=== PATIENT | male | born 1995 | race African-American/Black ===

== ENCOUNTER 2020-02-23 20:34 | Inpatient (IN) | payer SELFPAY ==
[~2020-02-23] VITALS: Ht 170.2 cm; Wt 59.1 kg
[2020-02-23 20:35] VITALS: BP 114/52
--- NOTE | 2020-02-23 20:35 | NUR ---
ED Nurse Note: Pt brought into ED by FRANK RA 67 from [facility] for altered mental status due to overdose of unknown drug. Pt was found unresponsive in hotel room by FRANK. FRANK states they attempted to secure his airway with OPA on scene and pt did not tolerate OPA. Pt became less responsive en route and FRANK came into ED bagging patient with BVM. Pt was also given narcan en route by FRANK with no response. ERMD bedside. Pt is not responsive to noxious stimuli in the ED. Pt pupils are fixed and nonresponsive to light. Pt connected to pet care technician and placed in gown. Will continute to monitor pt.
--- NOTE | 2020-02-23 20:45 | NUR ---
ED Nurse Note: ERMD bedside. Pt is on 15L oxgen via NRB at this time. Pt appears to be agonal breathing, unable to secure his own airway. ERMD setting up for intubation.
--- NOTE | 2020-02-23 20:50 | NUR ---
ED Nurse Note: Intubation documentation: Pre intubation VS: BP 110/ 83, HR 65, RR 8 on 15L NRB oxygen sat 98% Meds: 2051 pt given etomidate 20mg via IVP and 100mg rocuronium via IVP Intubation completed at 2054. No complications noted. Pt connected to mechanical ventilator by RT with vent settings- PEEP 5.0, TV 480, FiO2 60%. ET tube size 7.5 and secured at 25cm at the lip.
--- NOTE | 2020-02-23 20:59 | Emergency Room Report ---
History of Present Illness General Chief Complaint: Overdose Source: EMS (Jose Antonio Carey MD) Present Illness HPI 27-year-old male presents with altered mental status after utilizing drugs, he was found down unresponsive, unknown length of time aggravated by drugs alleviated by not taking drugs, severity is severe, patient presents via EMS patient received Narcan with no change in mental status patient had fixed dilated pupils (Jose Antonio Carey MD) Allergies: Coded Allergies: UNABLE TO ASSESS (Unverified , 02/23/20) COVID-19 Screening Contact w/high risk pt: No Recent Travel to affected area: No Experienced COVID-19 symptoms?: No (Jose Antonio Carey MD) Patient History Limited by: medical condition - Altered mental status Past Medical History: see triage record Social History: Reports: drug use Reviewed Nursing Documentation: PMH: Agreed; PSxH: Agreed (Jose Antonio Carey MD) Review of Systems All Other Systems: limited - Altered mental status (Jose Antonio Carey MD) Physical Exam Vital Signs Date Time Temp Pulse Resp B/P (MAP) Pulse Ox O2 Delivery O2 Flow Rate FiO2 02/23/20 20:30 58 114/52 (72) Sp02 EP Interpretation: reviewed, abnormal General Appearance: severe distress Head: normocephalic, atraumatic Eyes: bilateral eye other - fixed dilated ENT: uvula midline, moist mucus membranes Neck: supple, thyroid normal, supple/symm/no masses Respiratory: lungs clear, no respiratory distress, no retraction, no accessory muscle use Cardiovascular #1: normal peripheral pulses, regular rate, rhythm, no edema, no gallop, no murmur Gastrointestinal: non tender, soft, no guarding, no rebound Musculoskeletal: normal inspection Neurologic: other - Unresponsive Skin: no rash, warm/dry (Jose Antonio Carey MD) Procedures Critical Care Time Critical Care Time Given the critical condition in which the patient arrived, the patient was immediately assessed by myself and the nurse, and cardiac monitoring initiated due to the potential for rapid decompensation of the patient's clinical condition. During the course of the patient's stay, I spent a considerable amount of time at the bedside performing serial re-evaluations of the patient's hemodynamic and clinical status because of the recognized potential threat to life or limb in this condition. I then had a chance to review not only all of the available current laboratory and radiographic studies obtained today, but I also reviewed old records available to me at the time. Additionally, any ancillary information available including program mgr records were reviewed. Sequential vital signs were obtained. Critical Care time of 31 minutes was performed exclusive of billable procedures. (Jose Antonio Carey MD) Medical Decision Making Diagnostic Impression: Primary Impression: Altered mental state Qualified Codes: R41.82 - Altered mental status, unspecified Additional Impressions: Respiratory failure with hypoxia Qualified Codes: J96.01 - Acute respiratory failure with hypoxia Anoxic brain injury Hypothermia Qualified Codes: T68.XXXA - Hypothermia, initial encounter Polysubstance overdose Qualified Codes: T50.901A - Poisoning by unspecified drugs, medicaments and biological substances, accidental (unintentional), initial encounter ARF (acute renal failure) Qualified Codes: N17.9 - Acute kidney failure, unspecified Lactic acidosis Rhabdomyolysis Qualified Codes: M62.82 - Rhabdomyolysis ER Course 27-year-old male overdose, fixed dilated pupils presents in respiratory distress , patient requiring nonrebreather, hypoxic, agonal breathing, with possible posturing in decorticate positioning, patient was emergently intubated, labs are sent patient will be admitted to Dr. Anguiano Vent was titrated to effect Patient admitted to Dr. Anguiano Laboratory Tests Test 02/23/20 20:46 02/23/20 21:03 White Blood Count 17.9 K/UL (4.8-10.8) H Red Blood Count 6.17 M/UL (4.70-6.10) H Hemoglobin 13.2 G/DL (14.2-18.0) L Hematocrit 44.7 % (42.0-52.0) Mean Corpuscular Volume 72 FL (80-99) L Mean Corpuscular Hemoglobin 21.4 PG (27.0-31.0) L Mean Corpuscular Hemoglobin Concent 29.5 G/DL (32.0-36.0) L Red Cell Distribution Width 17.0 % (11.6-14.8) H Platelet Count 227 K/UL (150-450) Mean Platelet Volume 7.8 FL (6.5-10.1) Neutrophils (%) (Auto) % (45.0-75.0) Lymphocytes (%) (Auto) % (20.0-45.0) Monocytes (%) (Auto) % (1.0-10.0) Eosinophils (%) (Auto) % (0.0-3.0) Basophils (%) (Auto) % (0.0-2.0) Neutrophils % (Manual) Pending Lymphocytes % (Manual) Pending Platelet Estimate Pending Platelet Morphology Pending Sodium Level 136 MMOL/L (136-145) Potassium Level 5.9 MMOL/L (3.5-5.1) H Chloride Level 97 MMOL/L (98-107) L Carbon Dioxide Level 16 MMOL/L (21-32) L Anion Gap 23 mmol/L (5-15) H Blood Urea Nitrogen 31 mg/dL (7-18) H Creatinine 2.5 MG/DL (0.55-1.30) H Estimated Glomerular Filtration Rate 37.5 mL/min (>60) Glucose Level 152 MG/DL (74-106) H Calcium Level 9.4 MG/DL (8.5-10.1) Phosphorus Level 17.1 MG/DL (2.5-4.9) H Magnesium Level 3.7 MG/DL (1.8-2.4) H Total Bilirubin 0.3 MG/DL (0.2-1.0) Aspartate Amino Transferase (AST) 111 U/L (15-37) H Alanine Aminotransferase (ALT) 86 U/L (12-78) H Alkaline Phosphatase 119 U/L (46-116) H Total Creatine Kinase 1139 U/L (26-308) H Creatine Kinase MB 3.3 NG/ML (0.0-3.6) Creatine Kinase MB Relative Index 0.2 Troponin I 0.048 ng/mL (0.000-0.056) Pro-B-Type Natriuretic Peptide 23 pg/mL (0-125) Total Protein 8.8 G/DL (6.4-8.2) H Albumin 4.5 G/DL (3.4-5.0) Globulin 4.3 g/dL Albumin/Globulin Ratio 1.0 (1.0-2.7) Lipase 134 U/L (73-393) Urine Color Pending Urine Appearance Pending Urine pH Pending Urine Specific [place] Pending Urine Protein Pending Urine Glucose (UA) Pending Urine Ketones Pending Urine Blood Pending Urine Nitrite Pending Urine Bilirubin Pending Urine Urobilinogen Pending Urine Leukocyte Esterase Pending Urine Opiates Screen Negative (NEGATIVE) Urine Barbiturates Screen Negative (NEGATIVE) Phencyclidine (PCP) Screen Negative (NEGATIVE) Urine Amphetamines Screen Positive (NEGATIVE) H Urine Benzodiazepines Screen Positive (NEGATIVE) H Urine Cocaine Screen Positive (NEGATIVE) H Urine Marijuana (THC) Screen Positive (NEGATIVE) H (Jose Antonio Carey MD) ER Course This patient signed out to me. He came in as a Refugio Lomas. He overdosed on unknown substance and was found down in a motel/hotel room unknown amount of time. He had decorticate posturing. CT scan negative for any bleed. He is also very hypothermic. Symptoms consistent of anoxic brain injury. Patient is unresponsive and intubated. Waiting ICU bed. (Nikunj Patton MD) EKG Diagnostic Results EKG Time: 20:32 EP Interpretation: NSR, rate 62, QTc 497, no ischemic ST elevations, QTc 497 normal axis (Jose Antonio Carey MD) Rhythm Strip Diag. Results Rhythm Strip Time: 21:23 EP Interpretation: yes Rate: 73 Rhythm: NSR, no PVC's, no ectopy (Jose Antonio Carey MD) Chest X-Ray Diagnostic Results Chest X-Ray Diagnostic Results : Chest X-Ray Ordered: Yes # of Views/Limited/Complete: 1 View Indication: Shortness of Breath EP Interpretation: Yes Interpretation: no consolidation, no effusion, no pneumothorax, no acute cardiopulmonary disease, other - ET tube above the melanie Impression: Other - ET tube above the melanie Electronically Signed by: Jose Antonio Carey MD (Jose Antonio Carey MD) CT/MRI/US Diagnostic Results CT/MRI/US Diagnostic Results : Imaging Test Ordered: CT head Impression Negative per radiologist (Nikunj Patton MD) Last Vital Signs Date Time Temp Pulse Resp B/P (MAP) Pulse Ox O2 Delivery O2 Flow Rate FiO2 02/23/20 20:30 58 114/52 (72) (Jose Antonio Carey MD) Status: improved (Nikunj Patton MD) Disposition: ADMITTED INPATIENT Condition: Critical Referrals: NOT CHOSEN IPA/,REFERRING (PCP) Jose Antonio Carey MD Feb 23, 2020 20:59 Nikunj Patton MD Feb 23, 2020 22:46
[2020-02-23 21:19] LABS: BILIRUBIN, URINE NEGATIVE (NEGATIVE); GLUCOSE, URINE (UA) NEGATIVE (NEGATIVE); KETONES,URINE 3+ (NEGATIVE); LEUKOCYTE ESTERASE ,URINE NEGATIVE (NEGATIVE); NITRITE,URINE NEGATIVE (NEGATIVE); PH,URINE 5 (4.5-8.0); PROTEIN,URINE 3+ (NEGATIVE); UROBILINOGEN,URINE NORMAL MG/DL (0.0-1.0)
[2020-02-23 21:20] LABS: ANION GAP 23 mmol/L (5-15); BLOOD UREA NITROGEN 31 mg/dL (7-18); CALCIUM 9.4 MG/DL (8.5-10.1); CARBON DIOXIDE 16 MMOL/L (21-32); CHLORIDE 97 MMOL/L (98-107); CREATININE 2.5 MG/DL (0.55-1.30); POTASSIUM 5.9 MMOL/L (3.5-5.1); SODIUM 136 MMOL/L (136-145)
[2020-02-23 21:23] LABS: HEMATOCRIT 44.7 % (42.0-52.0); HEMOGLOBIN 13.2 G/DL (14.2-18.0); MEAN CORPUSCULAR VOLUME 72 FL (80-99); PLATELET COUNT 227 K/UL (150-450); RED BLOOD COUNT 6.17 M/UL (4.70-6.10); WHITE BLOOD COUNT 17.9 K/UL (4.8-10.8)
[2020-02-23 21:30] VITALS: BP 135/97
[2020-02-23 21:34] LABS: ALANINE AMINOTRANSFERASE 86 U/L (12-78); ALBUMIN 4.5 G/DL (3.4-5.0); ALKALINE PHOSPHATASE 119 U/L (46-116); ASPARTATE AMINO TRANSFERASE 111 U/L (15-37); BILIRUBIN,TOTAL 0.3 MG/DL (0.2-1.0); CKMB 3.3 NG/ML (0.0-3.6); CREATINE KINASE 1139 U/L (26-308); PHOSPHORUS 17.1 MG/DL (2.5-4.9)
[2020-02-23 21:38] LABS: APPEARANCE,URINE SLIGHTLY CLOUDY; COLOR,URINE YELLOW
--- NOTE | 2020-02-23 21:50 | NUR ---
ED Nurse Note: Pt taken to CT at this time with RN and RT, connected to master machinist.
--- NOTE | 2020-02-23 21:59 | NUR ---
ED Nurse Note: Pt returned from CT scan, no complications. VSS.
--- NOTE | 2020-02-23 22:03 | Diagnostic Imaging Report ---
EXAM: CT Head Without Intravenous Contrast CLINICAL HISTORY: AMS TECHNIQUE: Axial computed tomography images of the head/brain without intravenous contrast. CTDI is 53 mGy and DLP is 1040 mGy-cm. One or more of the following dose reduction techniques were used: automated exposure control, adjustment of the mA and/or kV according to patient size, use of iterative reconstruction technique. COMPARISON: No relevant prior studies available. FINDINGS: Brain: Unremarkable. No hemorrhage. No significant white matter disease. No edema. Ventricles: Unremarkable. No ventriculomegaly. Bones/joints: Unremarkable. No acute fracture. Soft tissues: Unremarkable. Sinuses: Unremarkable as visualized. No acute sinusitis. Mastoid air cells: Unremarkable as visualized. No mastoid effusion. IMPRESSION: 1. No acute intracranial abnormality. 2. Unremarkable study.
[2020-02-23 22:15] VITALS: BP 130/95
[2020-02-23] MEDS ORDERED: Morphine Sulfate 4mg/ml Inj (IV USE ONLY) IVP PRN (22:15)
[2020-02-23] MEDS ORDERED: Albuterol/Ipratropium 3ml neb HHN PRN (22:15)
--- NOTE | 2020-02-23 22:15 | NUR ---
ED Nurse Note: Pt rectal temp is 86.9F. Jeanine mayen inititated at this time on highest setting. Warm blankets also placed over patient. Will cont. to monitor temperature. Other vital signs are stable at this time as charted.
--- NOTE | 2020-02-23 22:15 | NUR ---
ED Nurse Note: ERMD aware of pt rectal temp.
--- NOTE | 2020-02-23 22:30 | NUR ---
ED Nurse Note: Pt repositioned. Skin is clean/dry/intact. Safety measures in place.
--- NOTE | 2020-02-23 23:00 | NUR ---
ED Nurse Note: Pt is in bed with safety measure in place. Pt does not appear to be in any distress. Pt is not moving extremities or exhibiting any s/s of pain. Pt continues to be on ramesh hugger. Will continue to monitor for any signs of distress or pain.
--- NOTE | 2020-02-23 23:10 | NUR ---
ED Nurse Note: RT also states vent setting tidal volume changed to 600 per order.
--- NOTE | 2020-02-23 23:10 | NUR ---
ED Nurse Note: RT bedside. RT titrated vent setting FiO2 down to 50% at this time.
--- NOTE | 2020-02-23 23:15 | NUR ---
ED Nurse Note: Repeat lactic drawn by RN and sent to lab.
--- NOTE | 2020-02-23 23:25 | NUR ---
ED Nurse Note: Pt has finished 2L of NS bolus and has had 1200ml of urine output since boss insertion.
[2020-02-23 23:30] VITALS: BP 107/81
--- NOTE | 2020-02-23 23:30 | NUR ---
ED Nurse Note: Pt rectal temp is trending upwards, currently 88.0F. ERMD aware. See vitals flowsheet. Pt is in no acute distress. Skin is clean/dry/intact. Will continue to monitor. Safety measures in place. No sedation ordered for pt at this time, pt is unresponsive and not moving extremities or pulling at tube or radiation monitor cords.
[2020-02-24] VITALS (24 sets, daily range): BP systolic 82–116; BP diastolic 39–79
--- NOTE | 2020-02-24 00:30 | NUR ---
ED Nurse Note: Pt is in no acute distress, see vitals flowsheet. Will continue to monitor. Pt remains unresponsive, not on any sedatives at this time.
[2020-02-24] MEDS: D5 1/2NS 1,000 ML IV SCH ×2 (00:47→13:40)
--- NOTE | 2020-02-24 01:30 | NUR ---
ED Nurse Note: Pt is now able to open his eyes and attempts to follow commands. Pt is able to move arms and legs slightly. Pt temperature is still trending upwards with ramesh hugger and warm blankets. Pt is in no acute distress. Pt remains on mechanical ventilator. Vital signs are stable as charted. Will continue to monitor. Safety measures in place.
--- NOTE | 2020-02-24 01:35 | NUR ---
ED Nurse Note: Pt repositioned. Skin is clean/dry/intact.
--- NOTE | 2020-02-24 01:50 | NUR ---
ED Nurse Note: ERMD bedside. ERMD notes to hold off on any medication with sedative affect, will not administer ativan.
--- NOTE | 2020-02-24 02:30 | NUR ---
ED Nurse Note: Pt is becoming agitated and attempting to reach for ET tube. ERMD bedside. ERMD ok'd to given ativan. Pt is still spontaneously opening his eyes, pupils remain fixed and unresponsive to light. Pt attempts to follow commands but unable to complete each command. Vital signs are stable as charted. Jeanine mayen remains on pt.
[2020-02-24] MEDS: LORazepam Inj 2mg/ml 1ml IV PRN ×3 (02:48→08:30)
[2020-02-24] MEDS ORDERED: LORazepam Inj 2mg/ml 1ml IV ONE (03:00)
--- NOTE | 2020-02-24 03:00 | NUR ---
ED Nurse Note: CRE/VRE/MRSA swabs collected and sent to lab.
--- NOTE | 2020-02-24 03:35 | NUR ---
ED Nurse Note: Report given to BUBBA Montelongo in ICU.
--- NOTE | 2020-02-24 03:45 | NUR ---
TRANSFER TO FLOOR: Patient transferred to ICU as ordered, per JENNIFER. Pt is on mechanical ventilator with settings noted in chart. Pt spontaneously opens eyes, unable to thoroughly follow commands. Pt appears to be mildly agitated and uncomfortable, JENNIFER saw pt prior to transferring to floow and is aware of status, no sedatives ordered. Pt is able to move extremities at this time. NAD. See vitals flowsheet. Pt taken to unit via gurney with ruiz, RN, RT and connected to media monitor. RT bagging pt for transfer to unit. Pt belongings sent with pt.
--- NOTE | 2020-02-24 03:45 | NUR ---
ED Nurse Note: Pt also transferred to ICU with ramesh hugger and IV fluids. IV patent and intact.
--- NOTE | 2020-02-24 04:00 | NUR ---
NURSE NOTES: Patient brought admitted from ED and SBAR from ED RN. Patient is currently intubated ETT 7.5/25cm AC 16/600/50%/5. Patient is arousable with stimulation. Patient is still slightly sedated from intubation in ER. Patient has right and left Ac both 18G. D51/2NS running at 75ml/hr. Skin is intact. Patients temperature is 96.4F (axillary). Bilateral soft wrist restraints initiated. Pulses assess and present. Castro catheter present. Vitals are stable.
--- NOTE | 2020-02-24 04:01 | NUR ---
NURSE NOTES: Jeanine Byrne applied.
--- NOTE | 2020-02-24 04:48 | NUR ---
NURSE NOTES: 2mg Ativan given IVP. Patient was beginning to become restless and agitated. BP remains stable.
[2020-02-24 06:22] LABS: BASOPHILS % (AUTO) 0.7 % (0.0-2.0); EOSINOPHILS % (AUTO) 0.1 % (0.0-3.0); HEMATOCRIT 40.3 % (42.0-52.0); HEMOGLOBIN 12.5 G/DL (14.2-18.0); MEAN CORPUSCULAR VOLUME 70 FL (80-99); MONOCYTES % (AUTO) 4.3 % (1.0-10.0); NEUTROPHILS % (AUTO) 74.9 % (45.0-75.0); PLATELET COUNT 189 K/UL (150-450); RED BLOOD COUNT 5.76 M/UL (4.70-6.10); RED CELL DISTRIBUTION WIDTH 14.3 % (11.6-14.8); WHITE BLOOD COUNT 5.4 K/UL (4.8-10.8)
[2020-02-24 06:42] LABS: INR 1.1 (0.9-1.1)
[2020-02-24 06:50] LABS: ALANINE AMINOTRANSFERASE 431 U/L (12-78); ALBUMIN 3.6 G/DL (3.4-5.0); ALKALINE PHOSPHATASE 92 U/L (46-116); ASPARTATE AMINO TRANSFERASE 556 U/L (15-37); BILIRUBIN,DIRECT < 0.1 MG/DL (0.0-0.3); BILIRUBIN,TOTAL 0.3 MG/DL (0.2-1.0); LACTATE DEHYDROGENASE 685 U/L (81-234); PHOSPHORUS 4.2 MG/DL (2.5-4.9)
[2020-02-24] MEDS ORDERED: Haloperidol 5mg/ml Inj IVPB PRN (08:00)
--- NOTE | 2020-02-24 08:00 | NUR ---
NURSE NOTES: Pt received from BUBBA Montelongo with no apparent acute distress. Pt easily arousal to verbal and tactile stimuli.SR on the monitor and orally intubated 7.5/25 AC 16 VT 600 Peep 5% Fio2 40%.Abdomen soft and non distended, skin intact, bilateral soft wrist restraints with no apparent skin impairment.NPO at this time.Left and right antecubital peripheral line 18G with no apparent infiltration.Good hand washing done before and after care.Patient keep on close monitoring.
[2020-02-24] MEDS: Heparin 5000 units/ml inj SUBQ SCH ×2 (08:32→21:00)
--- NOTE | 2020-02-24 09:05 | NUR ---
NURSE NOTES: pt noted with increase agitation and restlessness, complain of pain.Ativan and morphine given, will continue close monitoring.No significant change in condition at this time. Will continue close monitoring
--- NOTE | 2020-02-24 10:08 | Diagnostic Imaging Report ---
Indication: Hours of breath, post intubation Technique: One view of the chest Comparison: none Findings: Is an endotracheal tube in place, tip projecting approximately 6 cm above the melanie in good position. There may be some retrocardiac consolidation. Questionable reticular infiltrate is seen in the right upper lobe. The remainder of the lungs and pleural spaces are clear. The heart size is normal. Impression: Questionable retrocardiac and right upper lobe infiltrates. Correlate with clinical findings Satisfactory endotracheal intubation
--- NOTE | 2020-02-24 10:22 | NUR ---
NURSE NOTES: pt seen by Dr Russell with order to start weaning protocole.RT made aware
--- NOTE | 2020-02-24 10:29 | Consultation ---
History of Present Illness General Date patient seen: February 24, 2020 Chief Complaint: Overdose Present Illness HPI 27-year-old male presents with altered mental status after utilizing drugs, he was found down unresponsive, unknown length of time. Pt received Narcan by paramedics with no change in mental status patient. He had fixed dilated pupils Allergies: Coded Allergies: UNABLE TO ASSESS (Unverified , 02/23/20) Patient History Healthcare decision maker Resuscitation status Full Code Advanced Directive on File No Past Medical/Surgical History Past Medical/Surgical History: (1) Polysubstance overdose Review of Systems All Other Systems: negative except mentioned in HPI Physical Exam General Appearance: thin Lines, tubes and drains: peripheral HEENT: normocephalic, atraumatic Neck: non-tender, normal alignment Respiratory/Chest: chest wall non-tender, lungs clear Cardiovascular/Chest: normal peripheral pulses, normal rate Abdomen: normal bowel sounds, non tender Genitourinary/Rectal: normal genital exam Extremities: normal range of motion Neurologic: editing internship II-XII grossly normal Last 24 Hour Vital Signs Date Time Temp Pulse Resp B/P (MAP) Pulse Ox O2 Delivery O2 Flow Rate FiO2 02/24/20 10:00 116 26 102/46 (64) 96 02/24/20 09:01 110 16 40 02/24/20 09:00 117 15 101/49 (66) 98 02/24/20 09:00 98.8 02/24/20 08:00 40 02/24/20 08:00 Mechanical Ventilator 02/24/20 08:00 108 02/24/20 08:00 106 16 84/50 (61) 100 02/24/20 07:00 96.4 108 16 82/42 (55) 100 02/24/20 06:59 105 16 40 02/24/20 06:15 102 16 02/24/20 06:00 102 16 84/50 (61) 100 02/24/20 05:41 101 16 100 Mechanical Ventilator 40 02/24/20 05:28 101 16 40 02/24/20 05:00 103 16 87/46 (60) 100 02/24/20 04:30 106 16 96/59 (71) 100 02/24/20 04:06 96.4 109 17 96/47 (63) 100 02/24/20 04:00 Mechanical Ventilator 02/24/20 04:00 50 02/24/20 04:00 112 02/24/20 04:00 Mechanical Ventilator 02/24/20 03:45 92.5 103 16 96/54 100 Mechanical Ventilator 50 02/24/20 02:54 93 16 50 02/24/20 02:30 92.5 94 16 101/61 100 Mechanical Ventilator 50 02/24/20 01:33 68 16 50 02/24/20 01:30 91.9 81 16 97/61 100 Mechanical Ventilator 50 02/24/20 00:30 88.0 74 16 91/75 100 Mechanical Ventilator 50 02/23/20 23:30 88.0 68 16 107/81 100 Mechanical Ventilator 50 02/23/20 23:25 62 16 50 02/23/20 23:10 50 02/23/20 22:15 86.9 63 16 130/95 100 Mechanical Ventilator 60 02/23/20 21:30 63 16 135/97 100 Mechanical Ventilator 60 02/23/20 20:50 60 02/23/20 20:45 63 16 60 02/23/20 20:35 58 8 Ambu-Bag 02/23/20 20:35 58 8 114/52 Ambu-Bag 02/23/20 20:30 58 114/52 (72) Intake and Output 02/23/20 02/24/20 19:00 07:00 Intake Total 2075 ml Output Total 1500 ml Balance 575 ml Intake Oral 0 ml IV Total 2075 ml Output Urine Total 1500 ml Laboratory Tests Test 02/23/20 20:46 02/23/20 21:03 02/23/20 21:30 02/23/20 22:52 White Blood Count 17.9 K/UL (4.8-10.8) H Red Blood Count 6.17 M/UL (4.70-6.10) H Hemoglobin 13.2 G/DL (14.2-18.0) L Hematocrit 44.7 % (42.0-52.0) Mean Corpuscular Volume 72 FL (80-99) L Mean Corpuscular Hemoglobin 21.4 PG (27.0-31.0) L Mean Corpuscular Hemoglobin Concent 29.5 G/DL (32.0-36.0) L Red Cell Distribution Width 17.0 % (11.6-14.8) H Platelet Count 227 K/UL (150-450) Mean Platelet Volume 7.8 FL (6.5-10.1) Neutrophils (%) (Auto) % (45.0-75.0) Lymphocytes (%) (Auto) % (20.0-45.0) Monocytes (%) (Auto) % (1.0-10.0) Eosinophils (%) (Auto) % (0.0-3.0) Basophils (%) (Auto) % (0.0-2.0) Differential Total Cells Counted 100 Neutrophils % (Manual) 77 % (45-75) H Lymphocytes % (Manual) 16 % (20-45) L Monocytes % (Manual) 2 % (1-10) Eosinophils % (Manual) 0 % (0-3) Basophils % (Manual) 0 % (0-2) Band Neutrophils 5 % (0-8) Platelet Estimate Adequate Platelet Morphology Normal Polychromasia 1+ Anisocytosis 1+ Microcytosis 1+ Sodium Level 136 MMOL/L (136-145) Potassium Level 5.9 MMOL/L (3.5-5.1) H Chloride Level 97 MMOL/L (98-107) L Carbon Dioxide Level 16 MMOL/L (21-32) L Anion Gap 23 mmol/L (5-15) H Blood Urea Nitrogen 31 mg/dL (7-18) H Creatinine 2.5 MG/DL (0.55-1.30) H Estimat Glomerular Filtration Rate 37.5 mL/min (>60) Glucose Level 152 MG/DL (74-106) H Calcium Level 9.4 MG/DL (8.5-10.1) Phosphorus Level 17.1 MG/DL (2.5-4.9) H Magnesium Level 3.7 MG/DL (1.8-2.4) H Total Bilirubin 0.3 MG/DL (0.2-1.0) Aspartate Amino Transf (AST/SGOT) 111 U/L (15-37) H Alanine Aminotransferase (ALT/SGPT) 86 U/L (12-78) H Alkaline Phosphatase 119 U/L (46-116) H Total Creatine Kinase 1139 U/L (26-308) H Creatine Kinase MB 3.3 NG/ML (0.0-3.6) Creatine Kinase MB Relative Index 0.2 Troponin I 0.048 ng/mL (0.000-0.056) Pro-B-Type Natriuretic Peptide 23 pg/mL (0-125) Total Protein 8.8 G/DL (6.4-8.2) H Albumin 4.5 G/DL (3.4-5.0) Globulin 4.3 g/dL Albumin/Globulin Ratio 1.0 (1.0-2.7) Lipase 134 U/L (73-393) Urine Color Yellow Urine Appearance Slightly cloudy Urine pH 5 (4.5-8.0) Urine Specific [place] 1.025 (1.005-1.035) Urine Protein 3+ (NEGATIVE) H Urine Glucose (UA) Negative (NEGATIVE) Urine Ketones 3+ (NEGATIVE) H Urine Blood 1+ (NEGATIVE) H Urine Nitrite Negative (NEGATIVE) Urine Bilirubin Negative (NEGATIVE) Urine Urobilinogen Normal MG/DL (0.0-1.0) Urine Leukocyte Esterase Negative (NEGATIVE) Urine RBC 5-10 /HPF (0 - 0) H Urine WBC 0-2 /HPF (0 - 0) Urine Squamous Epithelial Cells Few /LPF (NONE/OCC) Urine Amorphous Sediment Few /LPF (NONE) H Urine Bacteria Moderate /HPF (NONE) H Urine Granular Casts 0-2 /LPF (NONE) H Urine Sperm Few /LPF (NONE) Urine Opiates Screen Negative (NEGATIVE) Urine Barbiturates Screen Negative (NEGATIVE) Phencyclidine (PCP) Screen Negative (NEGATIVE) Urine Amphetamines Screen Positive (NEGATIVE) H Urine Benzodiazepines Screen Positive (NEGATIVE) H Urine Cocaine Screen Positive (NEGATIVE) H Urine Marijuana (THC) Screen Positive (NEGATIVE) H Lactic Acid Level 6.80 mmol/L (0.4-2.0) H Arterial Blood pH 7.170 (7.350-7.450) Arterial Blood Partial Pressure CO2 35.2 mmHg (35.0-45.0) Arterial Blood Partial Pressure O2 101.9 mmHg (75.0-100.0) H Arterial Blood HCO3 12.6 mmol/L (22.0-26.0) *L Arterial Blood Oxygen Saturation 96.4 % (95-100) Arterial Blood Base Excess -15.0 (-2-2) *L Rigo Test Positive Test 02/23/20 23:15 02/24/20 05:54 Lactic Acid Level 4.90 mmol/L (0.66-2.22) H 2.60 mmol/L (0.4-2.0) H White Blood Count 5.4 K/UL (4.8-10.8) # Red Blood Count 5.76 M/UL (4.70-6.10) Hemoglobin 12.5 G/DL (14.2-18.0) L Hematocrit 40.3 % (42.0-52.0) L Mean Corpuscular Volume 70 FL (80-99) L Mean Corpuscular Hemoglobin 21.7 PG (27.0-31.0) L Mean Corpuscular Hemoglobin Concent 31.0 G/DL (32.0-36.0) L Red Cell Distribution Width 14.3 % (11.6-14.8) Platelet Count 189 K/UL (150-450) Mean Platelet Volume 6.7 FL (6.5-10.1) Neutrophils (%) (Auto) 74.9 % (45.0-75.0) Lymphocytes (%) (Auto) 20.0 % (20.0-45.0) Monocytes (%) (Auto) 4.3 % (1.0-10.0) Eosinophils (%) (Auto) 0.1 % (0.0-3.0) Basophils (%) (Auto) 0.7 % (0.0-2.0) Prothrombin Time 12.0 SEC (9.30-11.50) H Prothromb Time International Ratio 1.1 (0.9-1.1) Activated Partial Thromboplast Time 27 SEC (23-33) Phosphorus Level 4.2 MG/DL (2.5-4.9) Total Bilirubin 0.3 MG/DL (0.2-1.0) Direct Bilirubin < 0.1 MG/DL (0.0-0.3) Aspartate Amino Transf (AST/SGOT) 556 U/L (15-37) H Alanine Aminotransferase (ALT/SGPT) 431 U/L (12-78) H Alkaline Phosphatase 92 U/L (46-116) Lactate Dehydrogenase 685 U/L (81-234) H Total Protein 7.1 G/DL (6.4-8.2) Albumin 3.6 G/DL (3.4-5.0) Microbiology Date/Time Source Procedure Growth Status 02/24/20 02:04 Rectum Received Height (Feet): 5 Height (Inches): 7.00 Weight (Pounds): 131 Medications Current Medications Medications (Trade) Dose Ordered Sig/Dragan Route PRN Reason Start Time Stop Time Status Last Admin Dose Admin Acetaminophen (Tylenol) 650 mg Q4H PRN ORAL Fever 02/23/20 22:15 03/24/20 22:14 Albuterol/ Ipratropium (Albuterol/ Ipratropium) 3 ml EVERY 4 HOURS PRN HHN Shortness of Breath 02/23/20 22:15 02/28/20 22:14 Dextrose (Dextrose 50%) 25 ml Q30M PRN IV Hypoglycemia 02/23/20 22:15 05/23/20 22:14 Dextrose (Dextrose 50%) 50 ml Q30M PRN IV Hypoglycemia 02/23/20 22:15 05/23/20 22:14 Dextrose/Sodium Chloride 1,000 ml @ 75 mls/hr [id number] IV 02/24/20 00:45 03/25/20 00:44 02/24/20 00:47 Haloperidol Lactate (Haldol) 5 mg Q1H PRN IVPB Agitation 02/24/20 08:00 04/09/20 07:59 02/24/20 10:07 Heparin Sodium (Porcine) (Heparin 5000 units/ml) 5,000 units EVERY 12 HOURS SUBQ 02/24/20 09:00 04/09/20 08:59 02/24/20 08:32 Lorazepam (Ativan 2mg/ml 1ml) 2 mg EVERY 2 HOURS PRN IV agitation 02/23/20 22:15 03/01/20 22:14 02/24/20 08:30 Morphine Sulfate (Morphine Sulfate) 4 mg EVERY 4 HOURS PRN IVP Severe Pain (Pain Scale 7-10) 02/23/20 22:15 03/01/20 22:14 02/24/20 08:30 Ondansetron HCl (Zofran) 4 mg Q6H PRN IVP Nausea & Vomiting 02/23/20 22:15 03/24/20 22:14 Assessment/Plan Problem List: (1) Respiratory failure with hypoxia ICD Codes: J96.91 - Respiratory failure, unspecified with hypoxia SNOMED: [id number] Qualifiers: Qualified Codes: J96.01 - Acute respiratory failure with hypoxia (2) ARF (acute renal failure) ICD Codes: N17.9 - Acute kidney failure, unspecified SNOMED: [id number] Qualifiers: Qualified Codes: N17.9 - Acute kidney failure, unspecified (3) Polysubstance overdose ICD Codes: T50.901A - Poisoning by unspecified drugs, medicaments and biological substances, accidental (unintentional), initial encounter SNOMED: 25708033 Qualifiers: Qualified Codes: T50.901A - Poisoning by unspecified drugs, medicaments and biological substances, accidental (unintentional), initial encounter Respiratory: monitor respiratory rate, adjust FIO2, CXR Cardiac: continue to monitor HR/BP Renal: F/U I&O Infectious Disease: check cultures Gastrointestinal: continue feedings/current rate Endocrine: monitor blood sugar, continue sliding scale insulin Hematologic: transfuse if hgb<8.5 Neurologic: PRN Morphine, keep patient comfortable Affect: PRN ativan Time Spent (Minutes): 40 Notes Reviewed: dead mail checker, renal Discussed with: nurses, consultants, vocational case manager George Russell MD February 24, 2020 10:29
[2020-02-24] MEDS ORDERED: LORazepam Inj 2mg/ml 1ml IV PRN (10:30)
[2020-02-24 12:00] LABS: ANION GAP 10 mmol/L (5-15); BLOOD UREA NITROGEN 24 mg/dL (7-18); CALCIUM 8.2 MG/DL (8.5-10.1); CARBON DIOXIDE 23 MMOL/L (21-32); CHLORIDE 106 MMOL/L (98-107); CREATININE 1.3 MG/DL (0.55-1.30); POTASSIUM 4.2 MMOL/L (3.5-5.1); SODIUM 139 MMOL/L (136-145)
[2020-02-24 12:05] LABS: ALANINE AMINOTRANSFERASE 335 U/L (12-78); ALBUMIN 3.2 G/DL (3.4-5.0); ALBUMIN/GLOBULIN RATIO 1.1 (1.0-2.7); ALKALINE PHOSPHATASE 68 U/L (46-116); ASPARTATE AMINO TRANSFERASE 489 U/L (15-37); BILIRUBIN,TOTAL 0.3 MG/DL (0.2-1.0)
--- NOTE | 2020-02-24 12:14 | NUR ---
NURSE NOTES: Pt asleep, failed weaning twice , episode of apnea.Remains with intermittent episode of restless and trying to pull out tube. Pt reoriented , need reinforcement and unable to comprehend.Will continue to monitor with same care plan
[2020-02-24 12:29] LABS: CREATINE KINASE 1338 U/L (26-308)
--- NOTE | 2020-02-24 13:02 | NUR ---
RESPIRATORY NOTES PT placed on CPAP 5, PS 8, 40%. No signs of respiratory distress noted. ABG will be drawn in an hour. BUBBA mccarthy. Addendum: 02/24/20 at 1340 by IGNACIO ROCA RT Correction* PS 10, not 8.
--- NOTE | 2020-02-24 13:14 | Diagnostic Imaging Report ---
Indication: Abnormal renal function tests Technique: Grayscale and duplex images of the kidneys, retroperitoneum, and bladder were obtained. Comparison: none Findings: Right kidney measures 10.1 cm in length. Left kidney measures 9.3 cm in length. Both kidneys demonstrate normal echogenicity. No hydronephrosis. No focal abnormality. Normal inferior vena cava. Bladder is empty, contains a Castro catheter. Impression: Negative for hydronephrosis Empty bladder with a Castro catheter.
--- NOTE | 2020-02-24 13:25 | NUR ---
NURSE NOTES: Pt on CPAP PS 10 at 40%, tolerate well RR 12 and saturate at 96%. Will continue same care plan
--- NOTE | 2020-02-24 13:30 | NUR ---
CASE MANAGEMENT: INITIAL REVIEW 02/23/2020 24 YO M ROSY FROM [facility] CC: OD OF UNK DRUG PMHx: DEFERRED SI:OVERDOSE. AMS. Respiratory failure with hypoxia T 86.9 HR 63 RR 16 B/P 130/95 SATS 100% ON MECH VENT FIO2 60 LABS: WBC 17.9 K 5.9 CL 97 CO2 16 BUN 31 CR 2.5 GLU 152 LACTIC ACID 6.8 PHOS 17.1 MG 3.7 AST 111 ALT 86 ALP 119 TOTAL CK 1139 UTOX (AMPHETAMINES, BENZOS, COCAINE, THC) ABGs PH 7.170 PO2 101.9 HCO3 12.6 BE -15 IS: NS BOLUS X1 EKG EP Interpretation: NSR, rate 62, QTc 497, no ischemic ST elevations, QTc 497 normal axis CXR Impression: Other - ET tube above the melanie CT HEAD Impression Negative PATIENT ADMITTED TO 02/23/2020 @ 2100 DCP: TBD PLAN OF CARE: INTUBATE CONCURRENT REVIEW 02/24/2020 SI:OVERDOSE. AMS. Respiratory failure with hypoxia T 99.4 HR 112 RR 16 B/P 99/48 SATS 98% ON MECH VENT FIO2 40 LABS: BUN 24 URIC ACID 9.1 CA 8.2 AST 489 ALT 335 TOTAL CK 1338 SI:IVF @ 75 ML/HR ICU PLAN OF CARE: NEPHRO CONSULT WEANING CONSULT
[2020-02-24 14:06] LABS: APPEARANCE,URINE CLEAR; BILIRUBIN, URINE NEGATIVE (NEGATIVE); COLOR,URINE PALE YELLOW; GLUCOSE, URINE (UA) NEGATIVE (NEGATIVE); KETONES,URINE 4+ (NEGATIVE); LEUKOCYTE ESTERASE ,URINE 1+ (NEGATIVE); NITRITE,URINE NEGATIVE (NEGATIVE); PH,URINE 5 (4.5-8.0); PROTEIN,URINE 2+ (NEGATIVE); UROBILINOGEN,URINE NORMAL MG/DL (0.0-1.0)
--- NOTE | 2020-02-24 14:20 | NUR ---
RESPIRATORY NOTES PS titrated down from 10 to 8 ABG to be drawn in 30 minutes. BUBBA mccarthy.
--- NOTE | 2020-02-24 14:39 | NUR ---
NURSE NOTES: Pt was placed on PS 8 and tolerated well, will continue same care plan
--- NOTE | 2020-02-24 14:45 | NUR ---
[employer] CRM DEVELOPER NOTE PT was admitted to ICU on 02/24/2020. Pt is currently intubated and sedated. SW will attempt to assess when pt is stable to communicate. Per chart review, there is no copy of AD/POLST and emergency contact. RUDS positive for Benzo, Amphet, Cocaine and THC.
--- NOTE | 2020-02-24 15:29 | NUR ---
NURSE NOTES: ABG done and relayed to Dr Russell with order to extubate pt when awake.
--- NOTE | 2020-02-24 16:15 | NUR ---
NURSE NOTES: Pt self extubated before RT procede with extubation. No apparent acute distress. Tolerate well, breathing exercise provided but need more reinforcement.On cool air santa at 10L/40% and saturate at 96%. Will continue close monitoring. Restraints discontinue. Call light within easy reach.HOB kept elevated to prevent risk aspiration.
--- NOTE | 2020-02-24 16:15 | NUR ---
RESPIRATORY NOTES Patient self extubated. Patient is now on cool aerosol - 40%, 10L. No respiratory distress noted. RN Natasha aware. Will continue to monitor
--- NOTE | 2020-02-24 18:24 | NUR ---
NURSE NOTES: Pt self turned and repositioned,restless and unable to perform mouth care due to agitation. Pt continuously removing his oxygen mask , education and reinforcement provided.ADLs done and pt kept clean dry and comfortable. Call light within easy reach.No apparent sign of acute distress at this time, will continue close monitoring.
--- NOTE | 2020-02-24 19:09 | NUR ---
HAND-OFF: Report given to BUBBA Montelongo.
--- NOTE | 2020-02-24 19:24 | NUR ---
NURSE NOTES: SBAR from Natasha MAC. Patient is s/p extubated right now is is currently on nasal cannula at 2Land tolerating it well. Patient Is drowsy but is responsive to verbal command. Current HR is 116 ST, 95/39, 99.5F (axillary) 100% SpO2 and RR is 16. Breathing pattern is normal, clear lung sounds. Peripheral IV line with D51/2NS at 75ml/hr infusing. Castro catheter in place and draining via gravity. Will continue to monitor.
--- NOTE | 2020-02-24 20:00 | NUR ---
NURSE NOTES: 22G inserted right FA. Patient is sleeping at this time. Patient is slightly disoriented at times but follows commands. No respiratory distress or other discomforts noted.
--- NOTE | 2020-02-24 22:00 | NUR ---
NURSE NOTES: assessed patient, patient remains asleep. temp was 99.7, cooling measures given. HR is 111 ST. chest rise and fall noted, pulses present. Will continue to monitor.
--- NOTE | 2020-02-24 23:09 | History & Physical ---
History and Physical History & Physicial Garrison Anguiano MD February 24, 2020 23:09
[2020-02-25] VITALS (17 sets, daily range): BP systolic 92–134; BP diastolic 42–85
--- NOTE | 2020-02-25 | NUR ---
NURSE NOTES: Assessed patient, patient remains asleep. Cooling measures given. HR is 109 ST. chest rise and fall noted, pulses present. Will continue to monitor.
--- NOTE | 2020-02-25 02:00 | NUR ---
NURSE NOTES: Patient is awake and alert. Patient is unaware and confused to the events that led up to him being in the hospital. Patient does not recall events and states " what State am in?" Patient does not remember how he came to [place] and states he is from [place]. Patient follows command and is coherent. Vitals are stable and follows commands.
--- NOTE | 2020-02-25 04:00 | NUR ---
NURSE NOTES: Patient went to sleep again and woke up stating where he is and what state he is in. Reality reorientation provided and reality links provided. Patient is awake and alert but confused at times. Patient follows commands and demonstrates willingness to cooperate with plan of care. Am care provided. Will continue to monitor.
[2020-02-25] MEDS: D5 1/2NS 1,000 ML IV SCH ×2 (04:30→16:20)
--- NOTE | 2020-02-25 06:00 | NUR ---
NURSE NOTES: Patient awake and can ambulate with minimal assistance. Removed Castro catheter. Educated patient about using call light before getting up and waiting for nurse to arrive to assist to bathroom. Bed locked and alarm on set to zone 2. Vitals are stable and will continue to monitor.
[2020-02-25 07:53] LABS: ALANINE AMINOTRANSFERASE 245 U/L (12-78); ALBUMIN/GLOBULIN RATIO 0.9 (1.0-2.7); ALKALINE PHOSPHATASE 75 U/L (46-116); ANION GAP 10 mmol/L (5-15); ASPARTATE AMINO TRANSFERASE 302 U/L (15-37); BILIRUBIN,TOTAL 0.4 MG/DL (0.2-1.0); BLOOD UREA NITROGEN 9 mg/dL (7-18); CALCIUM 8.5 MG/DL (8.5-10.1); CARBON DIOXIDE 24 MMOL/L (21-32); CHLORIDE 103 MMOL/L (98-107); CREATININE 0.9 MG/DL (0.55-1.30); PHOSPHORUS 1.4 MG/DL (2.5-4.9); POTASSIUM 3.3 MMOL/L (3.5-5.1); SODIUM 137 MMOL/L (136-145)
--- NOTE | 2020-02-25 08:00 | NUR ---
NURSE NOTES: Received change of shift report from Reginald MAC. Pt is awake, however drowsy, oriented to full name and , however does not know where he is, or what has happened with him. Pt is on room air, at 96% O2Sat with no respiratory distress. ST on threat monitoring analyst, HR fluctuating from 102-112 with. Temp 98.6F axillary. Pt is warm to touch. D5 0.45% NS is infusing at 75ml/hour. Pt has urinal at bedside. Skin is intact. HOB at 30 degrees, bed locked, in lowest position, three side rails up.
[2020-02-25 08:23] LABS: BASOPHILS % (AUTO) 0.5 % (0.0-2.0); HEMATOCRIT 32.7 % (42.0-52.0); HEMOGLOBIN 10.3 G/DL (14.2-18.0); LYMPHOCYTES % (AUTO) 9.4 % (20.0-45.0); MEAN CORPUSCULAR VOLUME 69 FL (80-99); MONOCYTES % (AUTO) 5.7 % (1.0-10.0); NEUTROPHILS % (AUTO) 83.4 % (45.0-75.0); PLATELET COUNT 153 K/UL (150-450); RED BLOOD COUNT 4.75 M/UL (4.70-6.10); WHITE BLOOD COUNT 11.7 K/UL (4.8-10.8)
[2020-02-25] MEDS: Heparin 5000 units/ml inj SUBQ SCH ×2 (09:00→20:32)
--- NOTE | 2020-02-25 10:00 | NUR ---
NURSE NOTES: Pt refused Heparin SQ injection this AM. Pt recalls his mother's phone number and requested to have his mother contacted and updated on his condition. Pt's mother is Marva Howard [phone]. Pt's mother was contacted using hospital phone by pt's bedside. Per pt's mother, this pt was staying at a detox-facility for the last few months here in [place]. Per pt's mother, she will speak with the pt's father to decide on pt's disposition upon discharge. Will contact [facility] social service director regarding this case.
--- NOTE | 2020-02-25 12:52 | Internal Med Progress Note ---
Subjective Date of Service: February 25, 2020 Physician Name Daren Paul Attending Physician Garrison Anguiano MD Current Medications Medications (Trade) Dose Ordered Sig/Dragan Route PRN Reason Start Time Stop Time Status Last Admin Dose Admin Acetaminophen (Tylenol) 650 mg Q4H PRN ORAL Fever 02/23/20 22:15 03/24/20 22:14 02/24/20 21:40 Albuterol/ Ipratropium (Albuterol/ Ipratropium) 3 ml EVERY 4 HOURS PRN HHN Shortness of Breath 02/23/20 22:15 02/28/20 22:14 Dextrose (Dextrose 50%) 25 ml Q30M PRN IV Hypoglycemia 02/23/20 22:15 05/23/20 22:14 Dextrose (Dextrose 50%) 50 ml Q30M PRN IV Hypoglycemia 02/23/20 22:15 05/23/20 22:14 Dextrose/Sodium Chloride 1,000 ml @ 75 mls/hr [id number] IV 02/24/20 00:45 03/25/20 00:44 02/25/20 04:30 Haloperidol Lactate (Haldol) 5 mg Q1H PRN IVPB Agitation 02/24/20 08:00 04/09/20 07:59 02/24/20 10:07 Heparin Sodium (Porcine) (Heparin 5000 units/ml) 5,000 units EVERY 12 HOURS SUBQ 02/24/20 09:00 04/09/20 08:59 02/24/20 21:00 Lorazepam (Ativan 2mg/ml 1ml) 0.5 mg Q1H PRN IV agitation 02/24/20 10:30 03/02/20 10:29 Morphine Sulfate (Morphine Sulfate) 4 mg EVERY 4 HOURS PRN IVP Severe Pain (Pain Scale 7-10) 02/23/20 22:15 03/01/20 22:14 02/24/20 08:30 Ondansetron HCl (Zofran) 4 mg Q6H PRN IVP Nausea & Vomiting 02/23/20 22:15 03/24/20 22:14 Allergies: Coded Allergies: UNABLE TO ASSESS (Unverified , 02/23/20) ROS Limited/Unobtainable: Yes Subjective 24 YO M admitted with unintentional overdose. Cover for Int med-DR Anguiano. ICU Objective Last Vital Signs Date Time Temp Pulse Resp B/P (MAP) Pulse Ox O2 Delivery O2 Flow Rate FiO2 02/25/20 12:00 100 02/25/20 12:00 23 107/60 (76) 02/25/20 12:00 Room Air 02/25/20 11:00 96 02/25/20 08:00 98.6 02/25/20 06:51 21 02/25/20 00:09 10.0 General Appearance: WD/WN, lethargic EENT: PERRL/EOMI, normal ENT inspection Neck: non-tender, normal alignment, supple, normal inspection Cardiovascular: normal peripheral pulses, normal rate, regular rhythm, no gallop/murmur, no JVD Respiratory/Chest: chest wall non-tender, lungs clear, normal breath sounds, no respiratory distress, no accessory muscle use Abdomen: normal bowel sounds, non tender, soft, no organomegaly, no mass Extremities: normal range of motion, non-tender Neurologic: hand slitter II-XII grossly normal, no motor/sensory deficits, disoriented, depressed affect Skin: normal pigmentation, warm/dry Laboratory Tests Test 02/24/20 13:30 02/24/20 14:55 02/25/20 06:00 Urine Color Pale yellow Urine Appearance Clear Urine pH 5 (4.5-8.0) Urine Specific [employer] 1.020 (1.005-1.035) Urine Protein 2+ (NEGATIVE) H Urine Glucose (UA) Negative (NEGATIVE) Urine Ketones 4+ (NEGATIVE) H Urine Blood 3+ (NEGATIVE) H Urine Nitrite Negative (NEGATIVE) Urine Bilirubin Negative (NEGATIVE) Urine Urobilinogen Normal MG/DL (0.0-1.0) Urine Leukocyte Esterase 1+ (NEGATIVE) H Urine RBC 5-10 /HPF (0 - 0) H Urine WBC 5-10 /HPF (0 - 0) H Urine Squamous Epithelial Cells Occasional /LPF Urine Bacteria Occasional /HPF (NONE) Urine Eosinophils None seen (NONE SEEN) Urine Osmolality 640 mOsm/kg (429-449) H Urine Random Creatinine Pending Urine Random Microalbumin Pending Urine Random Sodium 27 mmol/L (20-110) Urine Microalbumin/Creatinine Ratio Pending Arterial Blood pH 7.325 (7.350-7.450) Arterial Blood Partial Pressure CO2 39.0 mmHg (35.0-45.0) Arterial Blood Partial Pressure O2 79.2 mmHg (75.0-100.0) Arterial Blood HCO3 19.9 mmol/L (22.0-26.0) L Arterial Blood Oxygen Saturation 94.4 % (95-100) L Arterial Blood Base Excess -5.7 (-2-2) L Rigo Test Positive White Blood Count 11.7 K/UL (4.8-10.8) #H Red Blood Count 4.75 M/UL (4.70-6.10) Hemoglobin 10.3 G/DL (14.2-18.0) L Hematocrit 32.7 % (42.0-52.0) L Mean Corpuscular Volume 69 FL (80-99) L Mean Corpuscular Hemoglobin 21.7 PG (27.0-31.0) L Mean Corpuscular Hemoglobin Concent 31.5 G/DL (32.0-36.0) L Red Cell Distribution Width 14.0 % (11.6-14.8) Platelet Count 153 K/UL (150-450) Mean Platelet Volume 7.0 FL (6.5-10.1) Neutrophils (%) (Auto) 83.4 % (45.0-75.0) H Lymphocytes (%) (Auto) 9.4 % (20.0-45.0) L Monocytes (%) (Auto) 5.7 % (1.0-10.0) Eosinophils (%) (Auto) 1.0 % (0.0-3.0) Basophils (%) (Auto) 0.5 % (0.0-2.0) Erythrocyte Sedimentation Rate 38 MM/HR (0-15) H Sodium Level 137 MMOL/L (136-145) Potassium Level 3.3 MMOL/L (3.5-5.1) L Chloride Level 103 MMOL/L (98-107) Carbon Dioxide Level 24 MMOL/L (21-32) Anion Gap 10 mmol/L (5-15) Blood Urea Nitrogen 9 mg/dL (7-18) Creatinine 0.9 MG/DL (0.55-1.30) Estimat Glomerular Filtration Rate > 60 mL/min (>60) Glucose Level 102 MG/DL (74-106) Calcium Level 8.5 MG/DL (8.5-10.1) Phosphorus Level 1.4 MG/DL (2.5-4.9) L Magnesium Level 1.9 MG/DL (1.8-2.4) Total Bilirubin 0.4 MG/DL (0.2-1.0) Aspartate Amino Transf (AST/SGOT) 302 U/L (15-37) H Alanine Aminotransferase (ALT/SGPT) 245 U/L (12-78) H Alkaline Phosphatase 75 U/L (46-116) C-Reactive Protein, Quantitative 18.9 mg/dL (0.00-0.90) H Total Protein 6.2 G/DL (6.4-8.2) L Albumin 3.0 G/DL (3.4-5.0) L Globulin 3.2 g/dL Albumin/Globulin Ratio 0.9 (1.0-2.7) L Microbiology Date/Time Source Procedure Growth Status 02/23/20 21:03 Urine,Clean Catch Urine Culture - Preliminary NO GROWTH Resulted 02/24/20 02:04 Rectum Received Intake and Output 02/24/20 02/25/20 19:00 07:00 Intake Total 842 ml 987.5 ml Output Total 830 ml 800 ml Balance 12 ml 187.5 ml Intake Oral 200 ml IV Total 842 ml 787.5 ml Output Urine Total 830 ml 800 ml Assessment/Plan Problem List: (1) Methamphetamine abuse (2) Cocaine abuse (3) Elevated liver function tests (4) Polysubstance overdose Assessment & Plan: Apparently unintenitonal. Await psychiatry consult (5) Rhabdomyolysis Assessment & Plan: Conitnue IV fluids; serial CPK (6) Altered mental state Assessment & Plan: Due to overdose (7) ARF (acute renal failure) Assessment & Plan: Followed by nephrology=Dr Grant; continue IV fluids Status: not improved Daren Paul MD February 25, 2020 12:52
--- NOTE | 2020-02-25 13:00 | NUR ---
NURSE NOTES: Pt was seen by Dr Paul. Order received to transfer pt to Med Surg. Pt was cleaned, gown/bed linens were changed. VS remain stable. Charge nurse aware. Awaiting for room availability to transfer pt.
--- NOTE | 2020-02-25 14:15 | NUR ---
TRANSFER TO FLOOR: Patient transferred to Med Surg from ICU per MD order, pt was transferred via hospital bed. Hand off report was given to Kika MAC. Pt's belonging's list was checked and signed. Pt only has bracelet and necklace. Skin is intact. Pt remains on room air with no respiratory distress. Denies any pain. VS remain stable. Endorsed plan of care.
[2020-02-25] MEDS ORDERED: Albuterol/Ipratropium 3ml neb HHN PRN (14:26)
[2020-02-25] MEDS ORDERED: Morphine Sulfate 4mg/ml Inj (IV USE ONLY) IVP PRN (14:28)
[2020-02-25] MEDS ORDERED: LORazepam Inj 2mg/ml 1ml IV PRN (14:28)
--- NOTE | 2020-02-25 14:30 | NUR ---
NURSE NOTES: Received patient from ICU,patient alert when name called,respirations unlabored.IV fluids infusing as ordered.patient belongings at bedside.Bed alarm on,call light within reach.
[2020-02-25] MEDS ORDERED: Haloperidol 5mg/ml Inj IVPB PRN (15:00)
--- NOTE | 2020-02-25 18:30 | NUR ---
NURSE NOTES: Patient resting,when awake patient very forgetful,need constant reorientation,bed alarm on,call light within reach.
--- NOTE | 2020-02-25 18:45 | History and Physical Report ---
DATE OF ADMISSION: 02/23/2020 CHIEF COMPLAINT: Altered mental status. HISTORY OF PRESENT ILLNESS: This is a 24-year-old gentleman with unknown past medical history and past surgical history, who presented to the hospital after he was found to have altered mental status using drugs. The patient was found unresponsive for unknown length of time. Paramedics were called in. On the field, the patient was given Narcan. No change in the mental status. The patient was noted to have fixed dilated pupil. Shortly after initial evaluation in the emergency department, the patient was intubated and subsequently was admitted to ICU. PAST MEDICAL HISTORY AND PAST SURGICAL HISTORY: Unknown. MEDICATIONS AT HOME: Unknown. ALLERGIES: No known drug allergies. FAMILY HISTORY: Noncontributory. REVIEW OF SYSTEMS: Unknown. PHYSICAL EXAMINATION: VITAL SIGNS: On admission, temperature is 86.9, pulse of 58, respiration 8, blood pressure is 114/52. GENERAL: The patient is intubated, sedated, unable to answer questions or open his eyes. HEAD AND NECK: Pupils equal and reactive to light, sluggish. ET tube in mouth. Neck was supple. No JVD. LUNGS: Good air entry. No wheezing or rales. Mechanical breath sounds. HEART: S1, S2. Regular rhythm. No gallops. Tachycardic. ABDOMEN: Soft, nondistended, nontender. Positive bowel sounds. EXTREMITIES: No cyanosis, clubbing, or edema. NEUROLOGIC: Very limited secondary to the patient's status being intubated; however, he is spontaneously moving all the extremities. RECTAL: Refused and deferred. GENITOURINARY: Refused and deferred. PSYCHIATRIC: Mood and affect is intact. LABORATORY DATA: On admission, WBC of 7.9, hemoglobin of 13, hematocrit 44, platelet is 227,000. ABG, pH 7.17, pCO2 of 35, pO2 of 101, saturating 96.4. Sodium 136, potassium 5.9, chloride 97, bicarb 16, BUN 31, creatinine 2.5, glucose is 152. Lactic acid is 6.80, repeat one was 4.90. Calcium is 9.4, phosphorus is 17, magnesium is 3.7. Total CK is 1139. Alkaline phosphatase 119. Troponin 0.04. Lipase is 134. ProBNP of 23. PT of 12, INR 1.1, PTT of 27. Urinalysis is +3 ketones, +1 blood, +3 protein, 5-10 rbc, moderate bacteria. Urine drug screen positive for amphetamine, benzodiazepine, cocaine, and marijuana. Chest x-ray, a questionable retroactive and right upper lobe infiltrate, correlates with clinical finding, satisfactory endotracheal tube. CT of the brain was done; no acute intracranial abnormality, unremarkable study. Ultrasound of the kidney, negative for hydronephrosis bladder with Castro catheter. ASSESSMENT: 1. Acute altered mental status, most likely secondary to toxic and metabolic encephalopathy as a result of the drug induced. 2. Acute respiratory failure. 3. Overt polysubstance abuse with overdose. 4. Acute liver injury with transaminitis, most likely secondary to medications or substance abuse. 5. Hyperkalemia. 6. Acute kidney injury. PLAN: Admit the patient to ICU. We will follow up with Dr. Russell from Pulmonary/Critical Care. Aggressive IV hydration. Monitor laboratory as well as culture. Consider to extubate if the patient's mental status improved. At this time, DVT prophylaxis is heparin subcu. Code status is Full Code. Garrison Anguiano M.D. DR: Norah JOB#: [id number] CC:
--- NOTE | 2020-02-25 19:35 | NUR ---
HAND-OFF: Report given to Minsu Rn,aware of fall risk..
--- NOTE | 2020-02-25 20:18 | NUR ---
NURSE NOTES: Patient awake, forgetful, confused, but compliant with following commands. Verbally responsive. Frequent reorientation needed and given during the rounding. Breathing unlabored on room air without distress. Denies pain or discomfort at this time. Able to ambulate to restroom with assist and supervision. IV noted on right forearm intact, dry, and patent running IVF ordered. Bed placed at the lowest with alarm, brake, and siderails up for safety. Call light placed within reach. Will continue to monitor and provide care as ordered.
--- NOTE | 2020-02-25 20:32 | NUR ---
NURSE NOTES: Despite the encouragement and education x 3, patient refused heparin shot. Patient ambulatory with assist to the bathroom. Will continue to monitor.
--- NOTE | 2020-02-26 00:05 | NUR ---
NURSE NOTES: RN stationed close to patient's room due to high risk for fall. Frequent monitoring and reorientation given. Informed charge nurse regarding the high risk for fall. Asked for staff cooperation to keep the patient safe. Will continue.
[2020-02-26] MEDS: D5 1/2NS 1,000 ML IV SCH ×2 (03:23→05:53)
[2020-02-26 04:24] VITALS: BP 112/69
--- NOTE | 2020-02-26 07:10 | NUR ---
NURSE NOTES: Spoke with patient's mother Savi Howard. Mrs. Howard requested that patient gets discharged to a rehabilitation facility. Called again to confirm on the name of the rehabilitation facility. Was not able to reach. Left a voicemail with a call back number. [facility] Addendum: 02/26/20 at 0749 by Tena Aguayo RN Patient mother's name is Daisha Howard. She called back to let the RN know that she is requesting a nursing home social worker to arrange a rehabilitation facility and make sure that her son gets discharged to a proper rehab facility and not anywhere else. Will update the information to the daysutft RN.
[2020-02-26 07:11] LABS: BASOPHILS % (AUTO) 0.2 % (0.0-2.0); EOSINOPHILS % (AUTO) 2.1 % (0.0-3.0); HEMATOCRIT 33.2 % (42.0-52.0); HEMOGLOBIN 10.8 G/DL (14.2-18.0); LYMPHOCYTES % (AUTO) 7.8 % (20.0-45.0); MEAN CORPUSCULAR VOLUME 69 FL (80-99); MONOCYTES % (AUTO) 5.5 % (1.0-10.0); NEUTROPHILS % (AUTO) 84.4 % (45.0-75.0); PLATELET COUNT 179 K/UL (150-450); RED CELL DISTRIBUTION WIDTH 13.8 % (11.6-14.8); WHITE BLOOD COUNT 12.9 K/UL (4.8-10.8)
--- NOTE | 2020-02-26 07:30 | NUR ---
HAND-OFF: Report given to BUBBA Lyles. Plan of care endorsed.
[2020-02-26 07:46] LABS: ALANINE AMINOTRANSFERASE 185 U/L (12-78); ALBUMIN 2.9 G/DL (3.4-5.0); ALBUMIN/GLOBULIN RATIO 0.7 (1.0-2.7); ALKALINE PHOSPHATASE 90 U/L (46-116); ANION GAP 9 mmol/L (5-15); ASPARTATE AMINO TRANSFERASE 116 U/L (15-37); BILIRUBIN,TOTAL 0.4 MG/DL (0.2-1.0); BLOOD UREA NITROGEN 5 mg/dL (7-18); CALCIUM 8.6 MG/DL (8.5-10.1); CARBON DIOXIDE 26 MMOL/L (21-32); CHLORIDE 106 MMOL/L (98-107); CREATINE KINASE 761 U/L (26-308); CREATININE 0.8 MG/DL (0.55-1.30); POTASSIUM 3.4 MMOL/L (3.5-5.1); SODIUM 141 MMOL/L (136-145)
[2020-02-26] MEDS: Heparin 5000 units/ml inj SUBQ SCH (09:13)
[2020-02-26 09:15] VITALS: BP 125/76
--- NOTE | 2020-02-26 09:48 | NUR ---
NURSE NOTES: PT AXOX1, ABLE TO CONVERSE WITH RN BUT IS VERY FORGETFUL. PT AMBULATED TO BATHROOM. PT FORGOT HE HAS IV ACCESS AND ATTEMPTED TO WALK TO BATHROOM WHEN HE WAS STILL CONNECTED TO IV FLUIDS. PT DID NOT KNOW WHERE HE WAS AND UNABLE TO REMEMBER MOTHER'S PHONE NUMBER. RN WAS ENDORSED PT'S MOTHER WANTED TO MAKE SURE HE HAS A PLACE TO GO AFTER DISCHARGE. PT WAS PREVIOUSLY STAYING AT A REHAB CENTER. RN ENTERED ORDER AND LEFT MESSAGE FOR [employer]GER. PT AMBULATES WITH STEADY GAIT BUT NEEDS SUPERVISION FOR SAFETY/FALL PRECAUTIONS. PT IS CALM AND ABLE TO TAKE DIRECTION. BED ALARM ON AND BED IN LOWEST POSITION WITH BEDSIDE RAILS X3 RAISED. CALL LIGHT WITHIN REACH. RN EDUCATED PT E [employer] LIGHT AND FALL PRECAUTIONS. PT VERBALIZED UNDERSTANDING, BUT WILL NEED CONSTANT EDUCATION.
--- NOTE | 2020-02-26 11:01 | NUR ---
NURSE NOTES: Patient arrived on unit. Stable. Denies pain or SOB. Patient instructed to use call light for assistance, verbalized understanding. Patient oriented to room, call light, and unit. Patient has all belongings. Patient is in bed in locked and lowest position with call light within reach and bed alarm on. All needs met at this time. WIll continue to monitor.
--- NOTE | 2020-02-26 11:05 | NUR ---
NURSE NOTES: PT'S MOTHER'S PHONE NUMBER
--- NOTE | 2020-02-26 11:07 | NUR ---
HAND-OFF: Report given to Margaux MOROCHO RN. BELONGINGS CHECKED AT BEDSIDE AND ALL ACCOUNTED. PT WAS TRANSFERRED IN STABLE CONDITION.
[2020-02-26 11:55] VITALS: BP 123/75
--- NOTE | 2020-02-26 14:23 | Internal Med Progress Note ---
Subjective Date of Service: February 26, 2020 Physician Name Daren Paul Attending Physician Garrison Anguiano MD Current Medications Medications (Trade) Dose Ordered Sig/Dragan Route PRN Reason Start Time Stop Time Status Last Admin Dose Admin Acetaminophen (Tylenol) 650 mg Q4H PRN ORAL Fever 02/25/20 14:25 03/24/20 14:24 02/25/20 21:01 Albuterol/ Ipratropium (Albuterol/ Ipratropium) 3 ml EVERY 4 HOURS PRN HHN Shortness of Breath 02/25/20 14:26 02/28/20 14:25 Dextrose (Dextrose 50%) 25 ml Q30M PRN IV Hypoglycemia 02/25/20 14:25 05/23/20 14:24 Dextrose (Dextrose 50%) 50 ml Q30M PRN IV Hypoglycemia 02/25/20 14:25 05/23/20 14:24 Dextrose/Sodium Chloride 1,000 ml @ 75 mls/hr [id number] IV 02/25/20 14:24 03/25/20 14:23 02/26/20 05:53 Heparin Sodium (Porcine) (Heparin 5000 units/ml) 5,000 units EVERY 12 HOURS SUBQ 02/25/20 21:00 04/09/20 08:59 02/26/20 09:13 Lorazepam (Ativan 2mg/ml 1ml) 0.5 mg Q1H PRN IV agitation 02/25/20 14:28 03/02/20 14:27 Morphine Sulfate (Morphine Sulfate) 4 mg Q4H PRN IVP Severe Pain (Pain Scale 7-10) 02/25/20 14:28 03/03/20 14:27 Ondansetron HCl (Zofran) 4 mg Q6H PRN IVP Nausea & Vomiting 02/25/20 14:29 03/24/20 14:28 Allergies: Coded Allergies: UNABLE TO ASSESS (Unverified , 02/23/20) ROS Limited/Unobtainable: No Constitutional: Reports: no symptoms HEENT: Reports: no symptoms Cardiovascular: Reports: no symptoms Respiratory: Reports: no symptoms Gastrointestinal/Abdominal: Reports: no symptoms Genitourinary: Reports: no symptoms Neurologic/Psychiatric: Reports: no symptoms Subjective 24 YO M admitted with unintentional overdose. Cover for Int med-DR Anguiano. ICU Objective Last Vital Signs Date Time Temp Pulse Resp B/P (MAP) Pulse Ox O2 Delivery O2 Flow Rate FiO2 02/26/20 11:55 97.6 94 17 123/75 (91) 99 02/26/20 09:00 Room Air 02/25/20 21:00 21 02/25/20 00:09 10.0 General Appearance: WD/WN, no apparent distress, alert EENT: PERRL/EOMI, normal ENT inspection, TMs normal Neck: non-tender, normal alignment, supple, normal inspection Cardiovascular: normal peripheral pulses, normal rate, regular rhythm, no gallop/murmur, no JVD Respiratory/Chest: chest wall non-tender, lungs clear, normal breath sounds, no respiratory distress, no accessory muscle use Abdomen: normal bowel sounds, non tender, soft, no organomegaly, no mass Extremities: normal range of motion, non-tender Neurologic: fisher trot line II-XII grossly normal, no motor/sensory deficits Skin: normal pigmentation Laboratory Tests Test 02/26/20 06:15 White Blood Count 12.9 K/UL (4.8-10.8) H Red Blood Count 4.80 M/UL (4.70-6.10) Hemoglobin 10.8 G/DL (14.2-18.0) L Hematocrit 33.2 % (42.0-52.0) L Mean Corpuscular Volume 69 FL (80-99) L Mean Corpuscular Hemoglobin 22.4 PG (27.0-31.0) L Mean Corpuscular Hemoglobin Concent 32.4 G/DL (32.0-36.0) Red Cell Distribution Width 13.8 % (11.6-14.8) Platelet Count 179 K/UL (150-450) Mean Platelet Volume 7.9 FL (6.5-10.1) Neutrophils (%) (Auto) 84.4 % (45.0-75.0) H Lymphocytes (%) (Auto) 7.8 % (20.0-45.0) L Monocytes (%) (Auto) 5.5 % (1.0-10.0) Eosinophils (%) (Auto) 2.1 % (0.0-3.0) Basophils (%) (Auto) 0.2 % (0.0-2.0) Sodium Level 141 MMOL/L (136-145) Potassium Level 3.4 MMOL/L (3.5-5.1) L Chloride Level 106 MMOL/L (98-107) Carbon Dioxide Level 26 MMOL/L (21-32) Anion Gap 9 mmol/L (5-15) Blood Urea Nitrogen 5 mg/dL (7-18) L Creatinine 0.8 MG/DL (0.55-1.30) Estimat Glomerular Filtration Rate > 60 mL/min (>60) Glucose Level 115 MG/DL (74-106) H Calcium Level 8.6 MG/DL (8.5-10.1) Total Bilirubin 0.4 MG/DL (0.2-1.0) Aspartate Amino Transf (AST/SGOT) 116 U/L (15-37) H Alanine Aminotransferase (ALT/SGPT) 185 U/L (12-78) H Alkaline Phosphatase 90 U/L (46-116) Total Creatine Kinase 761 U/L (26-308) H Total Protein 6.8 G/DL (6.4-8.2) Albumin 2.9 G/DL (3.4-5.0) L Globulin 3.9 g/dL Albumin/Globulin Ratio 0.7 (1.0-2.7) L Microbiology Date/Time Source Procedure Growth Status 02/24/20 02:04 Nasal Nares MRSA Culture - Final NO METHICILLIN RESISTANT STAPH AUREUS... Complete 02/23/20 21:03 Urine,Clean Catch Urine Culture - Preliminary NO GROWTH AFTER 24 HOURS Resulted 02/24/20 06:00 Rectum - Final NO CARBAPENEM-RESISTANT ENTEROBACTERI... Complete 02/24/20 02:04 Rectum VRE Culture - Final NO VANCOMYCIN RESISTANT ENTEROCOCCUS ... Complete Intake and Output 02/25/20 02/26/20 19:00 07:00 Intake Total 1512.5 ml 1080 ml Output Total 50 ml Balance 1462.5 ml 1080 ml Intake Oral 180 ml IV Total 712.5 ml 900 ml Other 800 ml Output Urine Total 50 ml # Voids 1 Assessment/Plan Problem List: (1) Methamphetamine abuse (2) Cocaine abuse (3) Elevated liver function tests (4) Polysubstance overdose Assessment & Plan: Apparently unintenitonal. Await psychiatry consult=Dr Lino (5) Rhabdomyolysis Assessment & Plan: Conitnue IV fluids; serial CPK (6) Altered mental state Assessment & Plan: Due to overdose (7) ARF (acute renal failure) Assessment & Plan: Followed by nephrology=Dr Grant; continue IV fluids Assessment/Plan Social work to determine patient wishes for rehab Daren Paul MD February 26, 2020 14:22
[2020-02-26 16:00] VITALS: BP 106/71
--- NOTE | 2020-02-26 19:51 | NUR ---
NURSE NOTES: Patient left hospital AMA. Stable. Denies pain or SOB. Skin is c/d/i. Patient made aware of risks and benefits. Patient has all belongings. Patient is assisted downstairs by staff and picked up by sober living director. No IV access. Dr. Paul paged regarding patient's AMA.
--- NOTE | 2020-02-26 21:16 | NUR ---
nurse's notes: discharged this patient who signed AMA in a stable condition, awake, alert, oriented, no s/s of distress; was picked up by Sriram Mckinnon (tel# [phone]) who was familiar to the patient. per BUBBA Martinez Dr. aware of patient's intention to go AMA.
--- NOTE | 2020-02-28 09:55 | Discharge Summary ---
Discharge Summary Discharge Summary _ DATE OF ADMISSION: 02/23/2020 DATE OF DISCHARGE: 02/26/2020 Patient left AGAINST MEDICAL ADVICE REASON FOR ADMISSION: 24 years old male with unknown past medical history , presented to the hospital with altered mental status after using illegal drugs. Patient was unresponsive for unknown duration of time . In the field patient received Narcan without change in mental status . Patient had fixed dilated pupils. Shortly after initial administration in the emergency department patient was intubated and subsequently admitted to ICU for critical care. Laboratory work-up revealed WBC 17.9 ,stable hemoglobin ,hematocrit and platelet count. Initial ABG right after intubation revealed severe acidosis with pH 7.17 ; chemistry revealed potassium 5.9. BUN 31, creatinine 2.5. Lactic acid 6.8 , repeated 4.9. Phosphorus 17.1 , magnesium 3.7. AST 111 , ALT 86. Total CK 1139 . Troponin 0.048 . EKG revealed sinus rhythm, no acute ischemic changes , Urine toxicology screen was positive for cocaine , amphetamine , marijuana and benzodiazepines. Chest x-ray confirmed satisfactory endotracheal intubation. CT of the head revealed no acute intracranial abnormalities. Patient admitted to ICU for further management. CONSULTANTS: pulmonary /critical care Dr. Russell [place] [employer] [facility]: Ventilator support and pulmonary hygiene provided. Patient started on aggressive IV hydration. DVT prophylaxis provided. Patient was followed -up with ABG. Mental status was closely monitored Patient was able to be extubated on 02/23. Pulse oximetry remained stable on room air. Urine culture was negative. Renal parameters and electrolytes were closely monitored, electrolytes corrected as needed , and nephrotoxic's were avoided. Renal ultrasound demonstrated normal bilateral kidney echogenicity , no evidence of hydronephrosis. Prior to signing AMA BUN 5, creatinine 0.8. Acute renal failure resolved. Sodium 141, potassium 3.4, magnesium 1.9. LFTs initially showed elevation , but started to trend down. AST down to 116 from highest 556, ALT down to 185 from highest 431. CK down to 761 from highest 1139 . Patient was counseled on abstinence from illicit street drugs. On 02/25 patient decided to leave AGAINST MEDICAL ADVICE. The risks and consequences of signing AGAINST MEDICAL ADVICE were discussed with patient in detail. Patient verbalized understanding, nevertheless signed AMA form and left. FINAL DIAGNOSES: Acute toxic metabolic encephalopathy secondary to drug overdose Acute respiratory failure requiring intubation , status post extubation Polysubstance abuse with overdose Acute liver injury , transaminitis -most likely secondary to substance abuse Hyperkalemia - resolved Acute kidney injury- resolved Elevated CK- improved I have been assigned to dictate discharge summary for this account. I was not involved in the patient's management. Tamy Roberts NP February 28, 2020 09:55
== END 2020-02-26 19:50 | disposition left against medical advice (07) | DRG 917 ==
LOC: EDBD 20:34 → EMR 20:41 → ICU 21:00 → EDBEDREQ 02-24 01:38 → 4E 02-25 14:00 → 3E 02-26 10:57
PROC: 5A1935Z Respiratory Ventilation, Less than 24 Consecutive Hours (ICD-10-PCS; principal; 2020-02-23)
PROC: 0BH17EZ Insertion of Endotracheal Airway into Trachea, Via Natural or Artificial Opening (ICD-10-PCS; principal; 2020-02-23)
DX: T43.621A Poisoning by amphetamines, accidental (unintentional), initial encounter (principal); G92 Toxic encephalopathy; J96.00 Acute respiratory failure, unspecified whether with hypoxia or hypercapnia; K72.00 Acute and subacute hepatic failure without coma; M62.82 Rhabdomyolysis; N17.9 Acute kidney failure, unspecified; T40.5X1A Poisoning by cocaine, accidental (unintentional), initial encounter; F14.10 Cocaine abuse, uncomplicated; F15.10 Other stimulant abuse, uncomplicated; E87.5 Hyperkalemia
CPT/HCPCS: 36415; 36600; 70450; 71045; 76770; 80053; 80076; 80307; 81001; 81003; 82043; 82550; 82553; 82803; 82962; 83605; 83615; 83690; 83735; 83880; 83935; 84100; 84300; 84484; 84550; 85007; 85025; 85610; 85651; 85730; 86140; 87081; 87086; 89050; 93005; 94002; 94003; 94664; 96360; 96361; 99291; J8499